=== PATIENT | male | born 1950 | race Caucasian/White ===

== ENCOUNTER 2017-07-02 19:53 | Emergency (ER) | payer OTHER ==
[2017-07-02 20:08] VITALS: TEMP 99.3
--- NOTE | 2017-07-02 20:15 | EDPHY ---
H & P Stated Complaint: Constipation, fever, LLQ pain, visiting from [facility] HPI/ROS: CHIEF COMPLAINT: Constipation HISTORY OF PRESENT ILLNESS: This patient is a 67 year old male with history of diverticulosis arriving with his complaining of constipation, fever, and lower left quadrant pain. He has history of constipation and diverticulitis, with his last episode of diverticulitis about one year ago. His symptoms are usually resolved with antibiotics (Cipro and Flagyl). His last bowel movement was Monday, five days ago. He generally take MiraLAX every morning, and has a bowel movement regularly each morning. He has diverticulosis of the lower left quadrant, noted on CT scan and colonoscopy. His most recent colonoscopy was three years ago, and normal other than diverticula. He denies any blood in his stool or vomiting. He had subjective fever Monday and , but by Monday, he felt well. Today in the afternoon, he developed fever again. He denies chest pain, shortness of breath, urinary complaints, sore throat, or any recent illness. He and his are visiting from [place], and are hoping to return home early tomorrow morning. REVIEW OF SYSTEMS: A ten point review of systems was performed and is negative with the exception of the items mentioned in the HPI. Past medical history: Diverticulosis Past surgical history: Tonsillectomy Family history: Noncontributory. Social history: at bedside. Visiting from [place] for a wedding. Nonsmoker. Has one glass of wine with dinner generally. 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 General Appearance: Alert. Vital signs reviewed. Blood pressure 149/105. Eyes: Pupils equal and round, no conjunctival injection, no discharge. Anicteric. ENT, Mouth: Mucous membranes are moist, no oropharyngeal erythema or edema. Neck: No lymphadenopathy, supple. Respiratory: Lungs are clear to auscultation; no wheezes, rales, or rhonchi. Cardiovascular: Mildly tachycardic. Regular rhythm; no murmur, rub, or gallop. Gastrointestinal: Left lower quadrant tenderness, no guarding. Abdomen is soft , no masses or organomegaly, bowel sounds normal. Skin: Warm and dry, no rashes on exposed skin, normal color. Back: Nontender to palpation over the thoracolumbar spine. No CVAT. Extremities: No lower extremity edema, no calf tenderness or swelling. Neurological: Alert and oriented. Moving all four extremities easily and equally. Psychiatric: Normal affect. - Personal History Current Tetanus/Diphtheria Vaccine: Unsure Current Tetanus Diphtheria and Acellular Pertussis (TDAP): Unsure - Medical/Surgical History Hx Asthma: No Hx Chronic Respiratory Disease: No Hx Diabetes: No Hx Cardiac Disease: No Hx Renal Disease: No Hx Cirrhosis: No Hx Alcoholism: No Hx HIV/AIDS: No Hx Splenectomy or Spleen Trauma: No Other PMH: IBS, tonsillectomy, diverticulitis. - Social History Smoking Status: Never smoked Constitutional: Initial Vital Signs Temperature (C) 37.4 C 07/02/17 20:05 Heart Rate 90 07/02/17 20:05 Respiratory Rate 18 07/02/17 20:05 Blood Pressure 149/105 H 07/02/17 20:05 O2 Sat (%) 96 07/02/17 20:05 O2 Delivery Mode Room Air Allergies/Adverse Reactions: No Known Allergies Allergy (Unverified 07/02/17 20:08) Home Medications: Medication Instructions Recorded Ciprofloxacin [Cipro] 500 mg PO BID #18 tab 07/02/17 Claritin 07/02/17 Miralax 17 gm (*) 07/02/17 metroNIDAZOLE [Flagyl 500 mg (*)] 500 mg PO TID #27 tab 07/02/17 Medical Decision Making - Diagnostics Imaging: Discussed imaging studies w/ call worker person Radiologist ED Course/Re-evaluation: 67 year old male with history of diverticulitis presents with 5 day history of constipation with associated intermittent fever and lower left quadrant abdominal pain. He is hypertensive and mildly tachycardic. Plan for lab work including CBC and BMP. Discussed CT abdomen risks and diagnostic benefit. IV established. Plan to administer 1L IV NS for symptom relief. He would like prescriptions for Cipro and Flagyl, which has successfully resolved his symptoms in the past, and to follow up with his primary care physician in [place] upon his return. The patient declines any pain medication at this time. He has taken one Aleve this evening, two hours prior to arrival. 21:46 Reassessed patient. WBC is elevated at 11.21. Plan for CT abdomen. He continues to decline pain medication. 22:[address] Sr, radiologist. CT abdomen/pelvis shows acute sigmoid diverticulitis. No focal abscess, free air, pneumoperitoneum, or obstructions. 22:[address] results. Plan to discharge home in good condition with prescriptions for Cipro and Flagyl. First doses will be administered here in the emergency department. He does not have frever or a surgical abdomen. He will follow up with his regular PCP, who is well-versed in his history of diverticulitis, when he returns to [place]. The patient is medically cleared to fly tomorrow morning. Return precautions discussed. He and his are comfortable with this plan. Of note, he was hypertensive on arrival with PB of 149/105. At [place] his BP was 98 /86. When reviewing this chart I am inclined to question this BP but cannot verify its accuracy at this point in time (after the fact). I do not know that he had no symptoms related to either high or low BP and ambulated easily, without lightheadedness, at [place]. Differential Diagnosis: I considered ddx that includes but is not limited to diverticulitis, abscess, bowel obstruction, constipation, UTI, ureteral calculus, urinary retention, musculoskeletal pain. - Data Points Laboratory Results: Laboratory Results 07/02/17 21:00 07/02/17 21:00 Medications Given: Discontinued Medications Ciprofloxacin (Cipro) 500 mg PO EDNOW ONE PRN Reason: Protocol Stop: 07/02/17 22:22 Last Admin: 07/02/17 22:28 Dose: 500 mg Ciprofloxacin (Cipro 500mg Prepack#2) 1 btl TAKEHOME EDNOW ONE Stop: 07/02/17 22:29 Last Admin: 07/02/17 22:42 Dose: 1 btl Sodium Chloride (Ns) 1,000 mls @ 0 mls/hr IV EDNOW ONE; Wide Open PRN Reason: Protocol Stop: 07/02/17 20:41 Last Admin: 07/02/17 20:55 Dose: 1,000 mls Metronidazole (Flagyl) 500 mg PO EDNOW ONE PRN Reason: Protocol Stop: 07/02/17 22:22 Last Admin: 07/02/17 22:27 Dose: 500 mg Metronidazole (Flagyl) 1,000 mg PO EDNOW ONE PRN Reason: Protocol Stop: 07/02/17 22:33 Last Admin: 07/02/17 22:35 Dose: 1,000 mg Departure - Departure Disposition: Home, Routine, Self-Care Clinical Impression: Diverticulitis Qualifiers: Diverticulitis site: large intestine Diverticulitis bleeding: without bleeding Diverticulitis complication: without perforation or abscess Qualified Code(s): K57.32 - Diverticulitis of large intestine without perforation or abscess without bleeding Condition: Good Instructions: Ciprofloxacin (By mouth), Metronidazole (By mouth), Diverticulitis (ED) Additional Instructions: 1. Follow up with your primary care provider upon your return to [place]. We referred you to our local primary care provider [facility] as well should you need to contact someone prior to your return. 2. Take your Cipro and Flagyl as prescribed. It is important to finish your entire course of antibiotics even if you are feeling well. 3. Return to the emergency department for increased abdominal pain, vomiting, chest pain, shortness of breath, fever, or other worsening of condition. Referrals: Harshad Jin MD [Medical Doctor] - As per Instructions Prescriptions: Ciprofloxacin [Cipro] 500 mg PO BID #18 tab metroNIDAZOLE [Flagyl 500 mg (*)] 500 mg PO TID #27 tab Report Scribed for: Shari Ness Report Scribed by: Loreto Mao Date of Report: 07/02/17 Time of Report: 20:40 Physician Review and Approval Statement: 07/02/17 20:14 Portions of this note were transcribed by the healthcare or medical. I, Dr. Shari Ness, personally performed the history, physical exam, and medical decision- making; and confirmed the accuracy of the information in the transcribed note.
[2017-07-02] MEDS ORDERED: NS 1,000 ML IV ONE (20:40)
[2017-07-02 21:20] LABS: % IMMATURE GRANULYOCYTES 0.5 % (0.0-1.1); ABSOLUTE IMMATURE GRANULOCYTES 0.06 10^3/uL (0.00-0.10); ADD DIFF? NO; ADD MORPH? NO; ADD SCAN? NO; ATYPICAL LYMPHOCYTE FLAG 0 (0-99); FRAGMENT RBC FLAG 0 (0-99); HEMATOCRIT 35.8 % (40.0-51.0); HEMOGLOBIN 12.8 g/dL (13.7-17.5); LEFT SHIFT FLG 0 (0-99); LIPEMIA HEMOLYSIS FLAG 90 (0-99); MEAN CELL HEMOGLOBIN CONCENTR. 35.8 g/dL (32.4-36.7); MEAN CELL VOLUME 95.2 fL (81.5-99.8); MEAN PLATELET VOLUME 10.2 fL (8.7-11.7); PLATELET CLUMPS FLAG 30 (0-99); PLATELET COUNT 176 10^3/uL (150-400); RED BLOOD CELL COUNT 3.76 10^6/uL (4.40-6.38); RED CELL DISTRIBUTION WIDTH 12.1 % (11.5-15.2)
[2017-07-02 21:42] LABS: ANION GAP 10 mEq/L (8-16); CALCIUM 8.9 mg/dL (8.5-10.4); CARBON DIOXIDE 22 mEq/l (22-31); CHLORIDE 95 mEq/L (97-110); CREATININE 1.1 mg/dL (0.7-1.3); GLOMERULAR FILTRATION RATE > 60; GLUCOSE 91 mg/dL (70-100); POTASSIUM 3.9 mEq/L (3.5-5.2); SODIUM 127 mEq/L (134-144)
[2017-07-02] MEDS ORDERED: IOPAMIDOL (ISOVUE-300) 100 ML BTL ONE (21:48)
[2017-07-02] MEDS ORDERED: metroNIDAZOLE 500 MG TAB PO ONE ×2 (22:21→22:32)
[2017-07-02] MEDS ORDERED: CIPROFLOXACIN 500 MG TAB PO ONE (22:21)
[2017-07-02] MEDS ORDERED: CIPROFLOXACIN 500MG PREPACK#2 BTL TAKEHOME ONE (22:28)
[2017-07-02 22:55] VITALS: BP 98/86; PULSE 76; RESP 16; O2SAT 95
== END 2017-07-02 22:53 | disposition home or self-care (01) ==
DX: K57.32 Diverticulitis of large intestine without perforation or abscess without bleeding (principal); E86.9 Volume depletion, unspecified
CPT/HCPCS: 74177; 96360; 99285; Q9967